=== PATIENT | male | born 1965 | race Caucasian/White ===

== ENCOUNTER 2021-04-29 07:07 | Day surgery (SDC) | payer OTHER ==
[~2021-04-29] VITALS: Ht 185.4 cm; Wt 93.0 kg
[~2021-04-29 07:07] MED LIST: ACETAMINOPHEN 500 MG TABLET PO ONE; BUPIVACAINE-EPI 0.25%-1:200000 MPF 30 ML VIAL. ONE; CETI10TA16 PO; CITA20TA9 PO; DESFLURANE 31 TO 60 MINUTES IH ONE; DEXAMETHASONE SOD PHOS 4 MG/ML VIAL ONE; DOCU100C28 PO; FAMO40TA4 PO; HYDROmorphone 2 MG/ML VIAL IVP PRN; IV RINGERS,LACTATED 1000ML 1,000 ML IV SCH; LAMO200T6 PO; LIDOCAINE 2% PF 5 ML VIAL. ONE; LITH300C PO; LITH600C PO; MIDAZOLAM HCL/PF 2 MG/2 ML VIAL. ONE; MINERAL OIL for SURGERY 10 ML VIAL. MC ONE; MORPHINE SULFATE 2 MG/ML INJ. IVP PRN; ONDANSETRON PF 4 MG/2 ML VIAL. ONE; POLY17PO29 PO; PROCHLORPERAZINE 10 MG/2 ML VIAL. IVP PRN; PROPOFOL 10 MG/ML (20ML) VIAL. IV ONE; ROCURONIUM 50 MG/5 ML VIAL. ONE; SUCCINYLCHOLINE 200 MG/10 ML VIAL. ONE; fentaNYL PF VIAL 100 MCG/2 ML VIAL IVP PRN; fentaNYL PF VIAL 100 MCG/2 ML VIAL ONE
[2021-04-29 07:33] VITALS: BP 125/75
--- NOTE | 2021-04-29 07:43 | PDOC1 ---
History and Physical Date of Admission Date of Admission DATE: 04/29/21 TIME: 07:40 Identification/Chief Complaint Chief Complaint Right inguinal hernia Source Source: Patient History of Present Illness History of Present Illness 55-year-old male with complaints of a painful bulge in his right groin been present for several years getting larger over the last several months and more painful Past Medical History GI: Diverticulosis Psych: Anxiety, Bipolar, Depression Past Surgical History Past Surgical History: Appendectomy, Tonsillectomy, Other (Colonoscopy) Family History Family History: No Significant Social History Smoke: 1 pack per day ALCOHOL: none Drugs: None Current Medications Current Medications Current Medications Fentanyl Citrate (Fentanyl 2ml Vial) 25 mcg PRN Q5MIN PRN IVP MILD PAIN 1-3; Start 04/29/21 at 06:00; Stop 04/30/21 at 05:59 Fentanyl Citrate (Fentanyl 2ml Vial) 50 mcg PRN Q5MIN PRN IVP MODERATE PAIN 4- 6; Start 04/29/21 at 06:00; Stop 04/30/21 at 05:59 Morphine Sulfate (Morphine Sulfate) 1 mg PRN Q10MIN PRN IVP SEVERE PAIN 7-10; Start 04/29/21 at 06:00; Stop 04/30/21 at 05:59; Status UNV Ringer's Solution 1,000 ml @ 30 mls/hr Q24H IV ; Start 04/29/21 at 06:00; Stop 04/29/21 at 17:59 Hydromorphone HCl (Dilaudid) 0.5 mg PRN Q10MIN PRN IVP SEVERE PAIN 7-10, 2nd CHOICE; Start 04/29/21 at 06:00; Stop 04/30/21 at 05:59; Status UNV Prochlorperazine Edisylate (Compazine) 5 mg PACU PRN PRN IVP NAUSEA, MRX1; Start 04/29/21 at 06:00; Stop 04/30/21 at 05:59 Cefazolin Sodium/ Dextrose 50 ml @ 100 mls/hr 1X PREOP PRN IV PRIOR TO PROCEDURE; Start 04/29/21 at 06:00; Stop 04/29/21 at 18:00 Acetaminophen (Tylenol) 1,000 mg 1X ONCE PO ; Start 04/29/21 at 06:00; Stop 04/29/21 at 06:01; Status DC Mineral Oil (Muri-Lube) 10 ml STK-MED ONCE MC ; Start 04/29/21 at 06:56; Stop 04/29/21 at 06:56; Status DC Bupivacaine HCl/ Epinephrine Bitart (Sensorcaine-Epi 0.25%-1:960194 Mpf) 30 ml STK-MED ONCE .ROUTE ; Start 04/29/21 at 06:56; Stop 04/29/21 at 06:57; Status DC Lidocaine HCl (Lidocaine Pf 2% Vial) 5 ml STK-MED ONCE .ROUTE ; Start 04/29/21 at 06:58; Stop 04/29/21 at 06:58; Status DC Propofol (Diprivan) 200 mg STK-MED ONCE IV ; Start 04/29/21 at 06:58; Stop 04/29/21 at 06:58; Status DC Ondansetron HCl (Zofran) 4 mg STK-MED ONCE .ROUTE ; Start 04/29/21 at 06:58; Stop 04/29/21 at 06:58; Status DC Dexamethasone Sodium Phosphate (Decadron) 4 mg STK-MED ONCE .ROUTE ; Start 04/29/21 at 06:58; Stop 04/29/21 at 06:58; Status DC Desflurane (Suprane) 30 ml STK-MED ONCE IH ; Start 04/29/21 at 06:58; Stop 04/29/21 at 06:58; Status DC Succinylcholine Chloride (Anectine) 200 mg STK-MED ONCE .ROUTE ; Start 04/29/21 at 06:58; Stop 04/29/21 at 06:58; Status DC Rocuronium [place] (Zemuron) 50 mg STK-MED ONCE .ROUTE ; Start 04/29/21 at 06:58; Stop 04/29/21 at 06:58; Status DC Fentanyl Citrate (Fentanyl 2ml Vial) 100 mcg STK-MED ONCE .ROUTE ; Start 04/29/21 at 06:58; Stop 04/29/21 at 06:58; Status DC Midazolam HCl (Versed) 2 mg STK-MED ONCE .ROUTE ; Start 04/29/21 at 06:59; Stop 04/29/21 at 06:59; Status DC Active Scripts Active Reported Miralax (Polyethylene Glycol 3350) 17 Gm Powd.pack 1 Pkt PO PRN DAILY PRN Celexa (Citalopram Hydrobromide) 20 Mg Tablet 20 Mg PO HS Cetirizine Hcl 10 Mg Tablet 10 Mg PO DAILY Lamotrigine 200 Mg Tablet 200 Mg PO HS [place] Carbonate 600 Mg Capsule 600 Mg PO HS [place] Carbonate 300 Mg Capsule 300 Mg PO DAILY08 Docusate Sodium 100 Mg Capsule 100 Mg PO PRN DAILY PRN Famotidine 40 Mg Tablet 40 Mg PO BID Allergies Allergies: Coded Allergies: codeine (Verified Allergy, Intermediate, Unknown, 04/29/21) haloperidol (Verified Adverse Reaction, Intermediate, 04/29/21) LOSS OF MUSCLE CONTROL, HYPER-VENTILATES ROS Genitourinary: YES Pain (Right groin) Physical Exam General: Alert, Oriented X3, Cooperative, No acute distress HEENT: Atraumatic, EOMI Lungs: Clear to auscultation, Normal air movement Heart: RRR, no murmurs Abdomen: Normal bowel sounds, Soft, No tenderness Male Genitals Exam: hernia (Right side) Extremities: No edema Skin: No significant lesion Neuro: Normal speech Vitals Vitals Vital Signs Date Time Temp Pulse Resp B/P (MAP) Pulse Ox O2 Delivery O2 Flow Rate FiO2 04/29/21 07:33 97.7 82 18 97 97.7 VTE Prophylaxis Ordered VTE Prophylaxis Devices: Yes VTE Pharmacological Prophylaxi: Contraindicated Assessment/Plan Assessment/Plan Right inguinal hernia plan robotic assisted laparoscopic repair Justifications for Admission Other Justification SYLVAIN WEISS MD Apr 29, 2021 07:43
[2021-04-29] MEDS ORDERED: KETAMINE HCL IN NACL, ISO-OSM 50 MG/5 ML SYRINGE ONE (08:16)
[2021-04-29] MEDS ORDERED: NEOSTIGMINE METHYLSULFATE 5 MG/5 ML SYRINGE. ONE (08:22)
[2021-04-29] MEDS ORDERED: GLYCOPYRROLATE 1 MG/5 ML VIAL. ONE (08:23)
--- NOTE | 2021-04-29 09:03 | PDOC4 ---
Operative Note Operative Note Date: April 29, 2021 at 0900 Preoperative diagnosis: Right inguinal hernia Postoperative diagnosis: Same Procedure: Robotic assisted laparoscopic right inguinal hernia repair with mesh Surgeon: Sha Specimen: None Dictation: Patient is a 55-year-old male with complaints of a painful bulge in his right groin consistent with a hernia. Procedure of robotic assisted laparoscopic right inguinal hernia repair with mesh was explained to the patient detail risk benefits were also discussed including bleeding infection injury to intra-abdominal contents possible necessitating further open operations alternatives to this procedure also discussed with the patient who seemed to understand and gave a verbal written consent to have the procedure performed. Patient was taken to the operating room placed in supine position general a nesthesia was initiated once patient was sleeping intubated placed in low lithotomy positioning and his abdomen was prepped and draped in usual sterile fashion using ChloraPrep. An area just above the umbilicus was injected with quarter percent Marcaine with epinephrine incision was made with a blade scalpel and a varies needle was placed within the abdomen creating pneumoperitoneum once this was complete 8 mm da Natty port was placed and a 8 mm da Natty camera's placed within the abdomen which was inspected was noted that the right inguinal hernia was quite large with and incarcerated small bowel. A 8 mm port was then placed in the right midabdomen a millimeter port was placed in left midabdomen the da Natty robot was brought and docked all port sites surgeon went to the robotic console using grasper and Endo Lan scissors the peritoneum over the right side was incised and a flap propagated posteriorly reducing the hernia sac and contents. A large 3D max Bard mesh was then placed over the floor of the p eritoneum covering the hernia defect and the peritoneum was then closed over the mesh with a running 2 OV lock absorbable suture. Suture was removed from the abdomen the da Natty robot was undocked from all port sites all port sites were removed and the pneumoperitoneum reduced all port sites were closed with 4 subcuticular Monocryl Mastisol Steri-Strips and island dressings were applied. Patient was awakened extubated operating room taken to recovery in stable condition all sponge instrument needle counts listed as correct estimated blood loss 5 mL. SYLVAIN WEISS MD Apr 29, 2021 09:03
[2021-04-29] MEDS ORDERED: OXYC-325 PO (09:05)
--- NOTE | 2021-04-29 09:06 | DISCH ---
DISCHARGE INSTRUCTIONS Condition on Discharge Condition on Discharge: Stable Activity After Discharge Activity Instructions for Disc: Avoid exertion Other activity instructions: No lifting more than 20 pounds for 2 weeks Diet after Discharge Diet after Discharge: Regular Wound Incision Care Other wound/incision instructi: May shower in 24 hours Contacting the DRDerek after DC Call your doctor for: If your condition worsens Follow-Up Follow up with: Dr. Weiss in 2 weeks SYLVAIN WEISS MD Apr 29, 2021 09:06
[2021-04-29] MEDS ORDERED: fentaNYL PF VIAL 100 MCG/2 ML VIAL ONE (09:20)
[2021-04-29] MEDS: fentaNYL PF VIAL 100 MCG/2 ML VIAL IVP PRN ×2 (09:25→09:36)
[2021-04-29] MEDS ORDERED: MORPHINE SULFATE 2 MG/ML INJ. ONE (09:43)
[2021-04-29] MEDS ORDERED: ONDANSETRON PF 4 MG/2 ML VIAL. ONE (09:44)
[2021-04-29] MEDS: MORPHINE SULFATE 2 MG/ML INJ. IVP PRN ×2 (09:50→10:00)
[2021-04-29 10:00] VITALS: BP 114/68
[2021-04-29] MEDS ORDERED: oxyCODONE/APAP 5/325 1 TAB TABLET PO ONE (10:00)
[2021-04-29] MEDS ORDERED: ONDANSETRON PF 4 MG/2 ML VIAL. IVP ONE (10:00)
[2021-04-29] MEDS ORDERED: PROCHLORPERAZINE 10 MG/2 ML VIAL. ONE (10:07)
== END 2021-04-29 11:27 | disposition home or self-care (01) ==
LOC: SURG 07:07
PROVIDERS: ATTEND Surgery
DX: K40.30 Unilateral inguinal hernia, with obstruction, without gangrene, not specified as recurrent (principal); I10 Essential (primary) hypertension; K21.9 Gastro-esophageal reflux disease without esophagitis; F32.9 Major depressive disorder, single episode, unspecified; Z87.891 Personal history of nicotine dependence; Z79.899 Other long term (current) drug therapy; Z98.890 Other specified postprocedural states; Z88.5 Allergy status to narcotic agent; Z88.8 Allergy status to other drugs, medicaments and biological substances
CPT/HCPCS: 49650; A4364; A4930; A6219; C1781; J0330; J0690; J0780; J1100; J2250; J2270; J2405; J2704; J2710; J3010; J3490; S2900; A4223; A4657